=== PATIENT | female | born 1990 | race Caucasian/White ===

== ENCOUNTER 2017-01-03 16:41 | Inpatient (IN) | payer MEDICAID ==
[~2017-01-03] VITALS: Ht 157.5 cm; Wt 94.2 kg
[2017-01-03 17:13] VITALS: Ht 157.5 cm; Wt 94.2 kg
[2017-01-03 17:14] VITALS: BP 153/90; PULSE 75; RESP 18
[2017-01-03] MEDS ORDERED: PRENAT PO (17:15)
[2017-01-03 17:45] LABS: ADD SCAN DIFF NO
[2017-01-03 17:48] LABS: BASOPHIL # 0.1 10^3/ul (0.0-0.1); BASOPHILS % 0.7 % (0.0-2.0); EOSINOPHILS # 0.6 10^3/ul (0.0-0.5); EOSINOPHILS % 7.4 % (0.0-7.0); HEMATOCRIT 38.9 % (37.0-47.0); HEMOGLOBIN 12.8 g/dl (12.0-16.0); LYMPHOCYTES # 1.8 10^3/ul (0.8-2.9); LYMPHOCYTES % 20.8 % (15.0-51.0); MEAN CORPUSCULAR HEMOGLOBIN 28.6 pg (29.0-33.0); MEAN CORPUSCULAR HGB CONC 32.9 g/dl (32.0-37.0); MEAN CORPUSCULAR VOLUME 86.8 fl (82.0-101.0); MEAN PLATELET VOLUME 11.9 fl (7.4-10.4); MONOCYTE # 0.8 10^3/ul (0.3-0.9); MONOCYTES % 8.9 % (0.0-11.0); NEUTROPHIL # 5.4 10^3/ul (1.6-7.5); PLATELET COUNT 143 10^3/UL (140-415); RED BLOOD COUNT 4.48 10^6/ul (4.20-5.40); RED CELL DISTRIBUTION WIDTH 15.2 % (11.5-14.5); WHITE BLOOD COUNT 8.7 10^3/ul (4.8-10.8)
[2017-01-03 17:58] LABS: ADD UMIC YES; URINE BILIRUBIN (Dip) NEGATIVE (NEGATIVE); URINE BLOOD (Dip) TRACE (NEGATIVE); URINE COLOR LT. YELLOW (YELLOW); URINE GLUCOSE (Dip) NEGATIVE (NEGATIVE); URINE KETONES (Dip) NEGATIVE (NEGATIVE); URINE LEUKOCYTE ESTERASE (Dip) NEGATIVE (NEGATIVE); URINE NITRITE (Dip) NEGATIVE (NEGATIVE); URINE TOTAL PROTEIN (Dip) 4+ (NEGATIVE); URINE UROBILINOGEN (Dip) 0.2 E.U./dL (0.1-1.0)
--- NOTE | 2017-01-03 18:06 | RADRPT ---
PROCEDURE: US OB. CLINICAL INDICATION: Hypertension TECHNIQUE: Multiple sonographic images of the pelvis were obtained. The images were reviewed on a PACS workstation. COMPARISON: No prior studies are available for comparison. FINDINGS: There is a single live intrauterine . cardiac activity is identified at a rate of 14 4 beats per minute. presentation is cephalic. Placenta is anterior grade 1. there are multiple venous lakes withi n the placenta. Biophysical profile score is as follows: Breathing 2 Movements 2 Tone 2 Fluid volume 2 Amniotic fluid index = 7.2 cm Total biophysical profile score = 8/8 IMPRESSION: Biophysical profile score = 8/8 RPTAT: HH .Melvin Gross MD, Date Time Electronically viewed and signed by .Melvin Gross MD, on 01/03/2017 18:06 .W/
--- NOTE | 2017-01-03 18:06 | RADRPT ---
PROCEDURE: US OB CLINICAL INDICATION: Increased blood pressure TECHNIQUE: Multiple sonographic images of the pelvis were obtained. The images were reviewed on a PACS workstation. COMPARISON: None FINDINGS: The cervix is not well visualized. There is a single viable intrauterine gestation. Cardiac activity is present with 139 beats per minute. There is a vertex presentation. The placenta is anterior. Multiple placental lakes are noted measuring approximately 1.5 cm each. Th ere is no evidence for an abruption or placenta previa. There is a subjectively normal amount of amniotic fluid. Measurements were made in order to determine age. The results are as follows (cm): BPD =8.10 HC =29.53 AC =29.16 FL =6.19 Estimated gestational age by ultrasound of approximately 32 weeks, 4 days. The estimated date of delivery by ultrasound is 02/24/2017. Reported gestational age by LMP of approximately 32 weeks, 4 days. The reported date of delivery by LMP is 02/24/2017. EFW = 2038 grams (44th percentile) IMPRESSION: Single viable intrauterine gestation of approximately 32 weeks, 4 days . The estimated date of delivery is 02/24/2017 . Dating by ultrasound is consistent with dating by LMP. Estimated weight is in the 44th percentile. RPTAT: EE Physician Arron Date Time Electronically viewed and signed by Physician Arron on 01/03/2017 18:06 /
[2017-01-03 18:07] LABS: BACTERIA,URINE FEW; URINE RBCS 0-2 /HPF (0)
[2017-01-03 18:11] LABS: ALBUMIN 3.1 g/dl (3.3-4.9); POTASSIUM 3.9 mmol/L (3.5-5.1)
[2017-01-03 18:13] LABS: CREATININE 0.61 mg/dl (0.44-1.00)
[2017-01-03 18:14] LABS: ALBUMIN/GLOBULIN RATIO 0.93; BILIRUBIN,INDIRECT 0.1 mg/dl (0-1.1); BILIRUBIN,TOTAL 0.1 mg/dl (0.2-1.3); CALCIUM 8.5 mg/dl (8.4-10.2); TOTAL PROTEIN 6.4 g/dl (6.1-8.1)
[2017-01-03 18:22] LABS: INR 0.91; PARTIAL THROMBOPLASTIN TIME 27.7 Sec (25.0-35.0); PROTIME 12.2 Sec (12.2-14.2)
[2017-01-03] MEDS: LACTATED RINGER'S 1,000 ML IV SCH (20:40)
[2017-01-03] MEDS ORDERED: LABETALOL 200 MG TAB PO SCH (21:00)
[2017-01-03] MEDS: LABETALOL 100 MG TAB PO SCH (21:35)
[2017-01-03] MEDS: BETAMET NA PHOS/AC(6 MG/ML) 5ML INJ IM SCH (21:38)
[2017-01-04] MEDS: LACTATED RINGER'S 1,000 ML IV SCH ×3 (03:56→20:42)
[2017-01-04] MEDS ORDERED: LABETALOL 100 MG TAB PO SCH (09:00)
[2017-01-04] MEDS: LABETALOL 100 MG TAB PO SCH ×2 (09:09→21:20)
--- NOTE | 2017-01-04 15:57 | CONS ---
DATE OF ADMISSION: 01/03/2017 DATE OF CONSULTATION: 01/04/2017 HISTORY OF PRESENT ILLNESS: The patient is a 26-year-old G1 at 32 weeks and 6 days, who presented l ast night with elevated blood pressures. She was placed on labetalol 200 mg twice a day and subsequ ently her blood pressures have decreased and they are normal to moderate range. At the time of admi ssion, her blood pressures were 3 times in the severe range. Apparently, she denied any headache or chest pain or shortness of breath or nausea or vomiting. Her AST, ALT normal. Her platelet count is 144,000. However, there is no baseline platelet count t o compare. Her creatinine 0.6. A 24-hour urine for protein has not been ordered. The patient received betamethasone last night and she is to receive her second dose of betamethasone today. She is obese and her heart tone is reassuring overall but interrupted at times. She has no contractions. PAST MEDICAL HISTORY: None. SURGICAL HISTORY: None. OBSTETRICAL HISTORY: G1. VITAL SIGNS: Currently blood pressure is normal. PHYSICAL EXAMINATION: Deferred. Vital signs as above. LABORATORY VALUES: As above. HEART TONES: As above. IMPRESSION: Intrauterine at 32 weeks and 6 days with severe gestational hypertension, imp roved with medication. Laboratories are normal. The patient is currently overall stable. She is status post betamethasone x1, is to receive her second dose of betamethasone tonight. RECOMMENDATIONS: 1. Please order a 24-hour urine for protein and creatinine clearance. 2. Please ask for the baseline platelet count as her platelet count currently is not too low, but i s low for the gestational age. 3. Repeat platelet count just to make sure that the platelet count is not decreasing. 4. NICU consult. 5. Delivery is recommended if the patient has non-reassuring heart tone, if the platelet coun t is less than 100,000, or if the patient has neurologic or GI symptoms or oliguric or the blood pre ssures are again in the severe range despite medication. Otherwise, delivery at 34 weeks is recommended. These recommendations were verbally discussed with the nurse and Dr. Gonzalez. Dictated By: WILMA DAVENPORT/LAZARO Conf#: [id number] DID#: [id number]
[2017-01-04] MEDS: BETAMET NA PHOS/AC(6 MG/ML) 5ML INJ IM SCH (21:19)
--- NOTE | 2017-01-04 21:59 | HP ---
Date/Time of Note Date/Time of Note late entry DATE: 01/03/17 OB - History Hx of Present Free Text/Dictation sent in from clinic for elevated BP and 4 + proteinuria and excessive weight gain in one week Chief Complaint: No C/O headache, blurred vision and epigastric pain Last Menstrual Period: Mar 17, 2017 Estimated Due Date: February 24, 2017 : 1 Para: 0 Care: Limited Care Ultrasounds: Normal mid trimester US Obstetrical Complications: Pre-eclampsia Medical Complications: None Past Family/Social History * Past Medical, Surgical, Family and Obstetric Histories reviewed from chart. Blood Type: O+ Rubella: immune RPR/VDRL: Negative GBS Status: Unknown HBsAG: Negative OB Admission Exam Vital Signs Vital Signs Vital Signs Date Time Temp Pulse Resp B/P Pulse Ox O2 Delivery O2 Flow Rate FiO2 01/03/17 17:14 98.2 75 18 153/90 Physical Exam HEENT: Abnormal (face is edematous ) Heart: Rhythm Normal Lungs: Clear Abdomen: WNL Extremities: Edema Reflexes: Normal Cervical Dilatation: None Effacement: 0% Station: -3 Membranes: Intact Heart Rate: 150's Accelerations: Accelerations Present Decelerations: No Decelerations Varibility: Marked Contractions on Admission: None Last 72 hours Lab Results CBC & BMP 01/03/17 17:35 Liver Function Test 01/03/17 17:35 Alanine Aminotransferase (ALT/SGPT) 40 Albumin 3.1 L Alkaline Phosphatase 143 H Aspartate Amino Transf (AST/SGOT) 33 Direct Bilirubin 0.00 Total Protein 6.4 OB Assessment/Plan Other Assessment: 32.6 weeks gestation PIH R/O severe PIH Other plan: start on Labetalol and 24 hr urine collection for protein and Cr/Cl Perinatology consult MARY TRUJILLO MD Jan 04, 2017 21:59
--- NOTE | 2017-01-04 22:02 | PN ---
Date/Time of Note Date/Time of Note DATE: 01/04/17 TIME: 22:00 OB Subjective Subjective Subjective No C/O H/A B/V or E/P OB Objective Objective Objective BPS are stable general P/E is unchanged OB Assessment/Plan Other Assessment: PIH at 33 weeks R/O severe PIH Other plan: will follow perinatology recommendation MARY TRUJILLO MD Jan 04, 2017 22:02
--- NOTE | 2017-01-04 23:27 | RADRPT ---
PROCEDURE: OB ultrasound for biophysical profile CLINICAL INDICATION: Biophysical profile. . TECHNIQUE: Multiple sonographic images of the pelvis were obtained. Transabdominal view of the gr avid uterus are available for review. The images were reviewed on a PACS workstation. COMPARISON: 01/03/2017 FINDINGS: Single intrauterine gestation. Presentation: Cephalic. Partially visualized placenta: Anterior. breathing movement = 2/2 tone = 2/2 motion = 2/2 LAVELL = 0/2 LAVELL = 4.1 cm heart rate: 161 beats per minute IMPRESSION: Single intrauterine gestation. Biophysical profile 6/8 Mild oligohydramnios with an LAVELL of 4.1 cm, 7.2 cm on the previous examination. Follow-up examinatio ns are recommended. RPTAT: AADD .Shine Arellano MD, MD Date Time Electronically viewed and signed by .Shine Arellano MD, on 01/04/2017 23:27 .B/
[2017-01-05] MEDS: LACTATED RINGER'S 1,000 ML IV SCH ×4 (04:34→22:39)
[2017-01-05 06:49] LABS: ADD SCAN DIFF NO
[2017-01-05 06:53] LABS: BASOPHILS % 0.4 % (0.0-2.0); HEMATOCRIT 35.4 % (37.0-47.0); HEMOGLOBIN 11.4 g/dl (12.0-16.0); LYMPHOCYTES # 1.3 10^3/ul (0.8-2.9); LYMPHOCYTES % 16.7 % (15.0-51.0); MEAN CORPUSCULAR HEMOGLOBIN 28.1 pg (29.0-33.0); MEAN CORPUSCULAR HGB CONC 32.2 g/dl (32.0-37.0); MEAN CORPUSCULAR VOLUME 87.2 fl (82.0-101.0); MONOCYTE # 0.3 10^3/ul (0.3-0.9); MONOCYTES % 3.9 % (0.0-11.0); NEUTROPHIL # 5.9 10^3/ul (1.6-7.5); NEUTROPHILS % 76.7 % (39.0-77.0); PLATELET COUNT 154 10^3/UL (140-415); RED BLOOD COUNT 4.06 10^6/ul (4.20-5.40); RED CELL DISTRIBUTION WIDTH 15.6 % (11.5-14.5); WHITE BLOOD COUNT 7.7 10^3/ul (4.8-10.8)
[2017-01-05 07:00] LABS: INR 1.11; PROTIME 14.3 Sec (12.2-14.2); PT RATIO 1.1
[2017-01-05 07:01] LABS: PARTIAL THROMBOPLASTIN TIME 26.5 Sec (25.0-35.0)
[2017-01-05 07:11] LABS: ALBUMIN 2.6 g/dl (3.3-4.9); POTASSIUM 4.8 mmol/L (3.5-5.1)
[2017-01-05 07:13] LABS: CREATININE 0.55 mg/dl (0.44-1.00)
[2017-01-05 07:14] LABS: ALBUMIN/GLOBULIN RATIO 0.81; CALCIUM 8.7 mg/dl (8.4-10.2); TOTAL PROTEIN 5.8 g/dl (6.1-8.1)
[2017-01-05] MEDS: LABETALOL 100 MG TAB PO SCH ×2 (08:59→21:09)
--- NOTE | 2017-01-05 09:03 | RADRPT ---
PROCEDURE: OB ultrasound CLINICAL INDICATION: . OB ultrasound with fluid volume assessment. Oligohydramnios TECHNIQUE: Sonographic evaluation to assess the amniotic fluid volume was performed. Transabdomin al imaging of the gravid uterus was performed. COMPARISON: 01/04/2017 FINDINGS: The amniotic fluid index equals approximately 4.7 cm. heart rate: 150 Beats per minute. Presentation: Cephalic Placenta anterior IMPRESSION: Amniotic fluid index equals 4.7 cm, previously 4.1 cm on 01/04/2017. RPTAT: AADD .Shine Arellano MD, MD Date Time Electronically viewed and signed by .Shine Arellano MD, MD on 01/05/2017 09:02 .B/
[2017-01-05 12:06] LABS: SCRET 0.55 mg/dl (0.44-1.00)
[2017-01-05] MEDS ORDERED: OXYTOCIN 30 UNITS/LR 500 ML IV SCH (15:30)
[2017-01-05] MEDS ORDERED: CEFAZOLIN 2 GM/50 ML (PMX) 50 ML IV SCH (15:30)
[2017-01-05] MEDS ORDERED: MISOPROSTOL 200 MCG TAB PR PRN ×2 (15:30→23:00)
[2017-01-05] MEDS ORDERED: OXYTOCIN 30 UNITS/LR 500 ML IV PRN ×2 (15:30→23:00)
[2017-01-05] MEDS ORDERED: CARBOPROST 250 MCG INJ IM PRN ×2 (15:30→23:00)
[2017-01-05] MEDS ORDERED: METHYLERGONOVINE 0.2 MG INJ IM PRN ×2 (15:30→23:00)
[2017-01-05] MEDS ORDERED: CITRIC ACID/NA CITRATE 30 ML CUP ONE (17:11)
[2017-01-05] MEDS ORDERED: ONDANSETRON 4 MG INJ ONE (17:11)
[2017-01-05] MEDS ORDERED: morphine SULFATE/PF (10 MG/10 ML) INJ ONE (17:38)
[2017-01-05] MEDS ORDERED: OXYTOCIN 10 UNIT INJ ONE ×2 (17:38→18:08)
[2017-01-05] MEDS ORDERED: FENTAnyl 50 MCG/ML VIAL ONE (17:38)
[2017-01-05] MEDS ORDERED: PHENYLephrine (100 MCG/ML) 5ML SYG ONE (17:38)
[2017-01-05] MEDS ORDERED: GLYCOPYRROLATE 0.4 MG INJ ONE (17:38)
[2017-01-05] MEDS ORDERED: METOCLOPRAMIDE 10 MG INJ ONE (17:39)
[2017-01-05] MEDS ORDERED: TRIMETHOBENZAMIDE 100 MG/ML VIAL IM PRN (18:30)
[2017-01-05] MEDS ORDERED: DIPHENHYDRAMINE 50 MG INJ IV PRN ×2 (18:30)
[2017-01-05] MEDS ORDERED: morphine 2 MG INJ IV PRN ×2 (18:30)
[2017-01-05] MEDS ORDERED: ONDANSETRON 4 MG INJ IV PRN ×2 (18:30)
[2017-01-05] MEDS ORDERED: EPHEDrine SULFATE 50 MG/5 ML SYG IV PRN (18:30)
[2017-01-05] MEDS ORDERED: MEPERIDINE 25 MG INJ IV PRN (18:30)
[2017-01-05] MEDS ORDERED: LABETALOL HCL 20MG INJ IV PRN (18:30)
[2017-01-05] MEDS ORDERED: ZOLPIDEM 5 MG TAB PO PRN (18:30)
[2017-01-05] MEDS ORDERED: hydrALAzine 20 MG INJ IV PRN (18:30)
[2017-01-05] MEDS ORDERED: HYDROmorphONE (0.2 MG/ML) 10ML SYG IV PRN ×3 (18:30)
[2017-01-05] MEDS ORDERED: FENTAnyl 50 MCG/ML VIAL IV PRN ×3 (18:30)
[2017-01-05] MEDS ORDERED: NALOXONE (0.4 MG/ML) INJ IV PRN (18:30)
[2017-01-05] MEDS ORDERED: KETOROLAC 30 MG INJ IV PRN (18:30)
[2017-01-05] MEDS ORDERED: hydrALAzine 20 MG INJ ONE (18:36)
[2017-01-05] MEDS ORDERED: ONDANSETRON 4 MG INJ IV STA (18:37)
[2017-01-05] MEDS ORDERED: CITRIC ACID/NA CITRATE 30 ML CUP PO ONE (19:00)
[2017-01-05] MEDS ORDERED: VANCOMYCIN 1 GM (PMX) 250 ML IVPB SCH ×2 (19:00→23:00)
--- NOTE | 2017-01-05 19:05 | QN ---
Documentation Comment per perinatologist decision was made to proceed with delivery considering persistent category 2 FHTs and oligohydramnios added to severe PIH decision was mde to proceed with C/S as mode of delivery Patient had good awareness of nature and complications of C/S procedure including but but limited to infection and hemorrhage and agreed to undergo C/S . MARY TRUJILLO MD Jan 05, 2017 19:05
--- NOTE | 2017-01-05 19:08 | OPR ---
Operative Report Planned Procedure Procedure date Jan 05, 2017 Procedure(s) primary C/S Performed by: MARY TRUJILLO MD Assisting provider: ANA LUISA BLOOD MD Anesthesiologist: Aung Agustin M.D. Pre-procedure diagnosis 33 weeks gestation severe PIH persistent category 2 FHTs oligohydramnios Anesthesia Type: spinal Procedure Description Under satisfactory anaesthesia a Pfannenstiel incision was made two fingerbreadth above and parallel to the symphysis of pubis. Incision was extended laterally to the border of the Recti muscles on either sides. Incision was carried down with sharp and blunt dissection until fascia was reached. Anterior Recti muscle fascia was incised in mid portion and incision extended laterally to the border of skin incision. Fascia was mobilized from muscle superiorly and Recti muscles were from midline using sharp and blunt dissection. Peritoneum was visualized; Avoiding bowel and bladder it was incised . Incision was extended superiorly and inferiorly. Bladder blade was placed. Posterior peritoneum covering the lower segment of the uterus and lower segment of the uterus were incised. Incision was extended laterally to the border of Round Lig. on either sides and baby was delivered from OP. position . Amniotic fluid appeared clear. Cord blood was obtained and cord had 3 vessels . Placenta was delivered spontaneously and appeared intact and complete. Intrauterine cavity was rubbed with a laparotomy sponge. Uterine incision was closed in 2 layers using running stitches of No1 Monocryl. Hemostasis appeared secure. Ovaries and Fallopian tubes were within normal limits. Announcing needle, lap sponge and instrument count to be correct abdomen was closed in layers as follows: Peritoneum and Recti muscles with running stitches of 20 Vicryl. Fascia with running stitch of No 1 PDS. Subcutaneous tissue with running stitches of 20 Chromic and skin was closed using js. Patient tolerated the procedure well and was transferred to [facility] in good condition. Post-Procedure Post-procedure diagnosis S/P C/S Findings: Live Baby oligohydramnios true cord knot Specimen removed: No Complications: None Pt Condition post procedure: stable Disposition: PACU Physician Certification I, the undersigned physician, hereby certify that I have discussed the procedure described in this consent form with this patient (or the patient's legal cash application representative), including: * The risk and benefits of the procedure; * Any adverse reactions that may reasonably be expected to occur; * Any alternative efficacious methods of treatment which may be medically viable ; * The potential problems that may occur during recuperation; * Potential for blood transfusion and associated risks/benefits; and * Any research or economic interest I may have regarding this treatment. I further certify that the patient/legally responsible person was encouraged to ask question and that all questions were answered. MARY TRUJILLO MD Jan 05, 2017 19:08
[2017-01-05 22:15] VITALS: BP 140/84; PULSE 87; RESP 20
[2017-01-05 22:45] VITALS: BP 141/83; PULSE 88; RESP 19
[2017-01-05] MEDS ORDERED: ACETAMINOPHEN/CODEINE #3 TAB PO PRN (23:00)
[2017-01-05] MEDS ORDERED: NA PHOSPHATE/BIPHOS 133 ML ENEMA PR PRN (23:00)
[2017-01-05] MEDS ORDERED: MAGNESIUM SULFATE 4 GM/100 ML 100 ML IV SCH (23:00)
[2017-01-05] MEDS ORDERED: LANOLIN 7 GM TUBE TOP PRN (23:00)
[2017-01-05] MEDS: MAGNESIUM SULFATE 20 GM/500 ML 500 ML IV SCH (23:41)
[2017-01-05 23:45] VITALS: BP 149/86; PULSE 87; RESP 19
[2017-01-06] VITALS (18 sets, daily range): BP systolic 121–152; BP diastolic 68–93; PULSE 75–90; RESP 16–20
[2017-01-06] MEDS: CLINDAMYCIN 300 MG CAP PO SCH ×4 (00:41→17:41)
[2017-01-06] MEDS: CEFAZOLIN 2 GM/50 ML (PMX) 50 ML IV SCH ×3 (00:41→14:06)
[2017-01-06] MEDS: LACTATED RINGER'S 1,000 ML IV SCH ×3 (06:07→22:39)
[2017-01-06] MEDS: SENNA/DOCUSATE NA (8.6MG/50MG) TAB PO SCH ×2 (08:34→21:17)
[2017-01-06] MEDS: LABETALOL 100 MG TAB PO SCH ×2 (08:36→21:16)
[2017-01-06 08:46] LABS: ADD SCAN DIFF NO
[2017-01-06 08:56] LABS: BASOPHILS % 0.1 % (0.0-2.0); EOSINOPHILS % 0.1 % (0.0-7.0); HEMATOCRIT 33.1 % (37.0-47.0); HEMOGLOBIN 10.9 g/dl (12.0-16.0); LYMPHOCYTES # 1.9 10^3/ul (0.8-2.9); LYMPHOCYTES % 13.5 % (15.0-51.0); MEAN CORPUSCULAR HGB CONC 32.9 g/dl (32.0-37.0); MEAN PLATELET VOLUME 12.6 fl (7.4-10.4); MONOCYTE # 1.3 10^3/ul (0.3-0.9); MONOCYTES % 9.1 % (0.0-11.0); NEUTROPHILS % 76.8 % (39.0-77.0); NUCLEATED RED BLOOD CELLS% 0.1 /100WBC (0.0-0.0); PLATELET COUNT 171 10^3/UL (140-415); RED BLOOD COUNT 3.76 10^6/ul (4.20-5.40); RED CELL DISTRIBUTION WIDTH 15.8 % (11.5-14.5); WHITE BLOOD COUNT 14.3 10^3/ul (4.8-10.8)
[2017-01-06] MEDS ORDERED: BISACODYL 10 MG SUPP PR ONE (10:00)
[2017-01-06] MEDS: MAGNESIUM SULFATE 20 GM/500 ML 500 ML IV SCH (14:09)
--- NOTE | 2017-01-06 18:32 | PN ---
Date/Time of Note Date/Time of Note DATE: 01/06/17 TIME: 18:31 Assessment/Plan VTE Prophylaxis VTE Prophylaxis Intervention: ambulation Lines/Catheters IV Catheter Type (from Nrsg): Saline Lock Assessment/Plan Assessment/Plan S/P C/S POD # 1 Severe PIH willadvance diet and ambulate Subjective 24 Hr Interval Summary No BM passing flatus Constitutional: BM, ambulates, flatus, improved, no complaints, urine output Pain Control: well controlled Exam/Review of Systems Vital Signs Vitals Vital Signs Date Time Temp Pulse Resp B/P Pulse Ox O2 Delivery O2 Flow Rate FiO2 01/06/17 17:57 75 140/75 Room Air 01/06/17 17:00 18 01/06/17 16:00 98.5 99 01/06/17 05:55 21 Intake and Output 01/05/17 01/05/17 01/06/17 15:00 23:00 07:00 Intake Total 1200 ml 2775 ml 1175 ml Output Total 1000 ml 875 ml 1200 ml Balance 200 ml 1900 ml -25 ml Exam Free Text/Dictation Abdomen: soft BS + incision: covered Constitutional: alert, oriented, well developed Psych: nl mood/affect, no complaints Head: atraumatic, normocephalic Eyes: EOMI, nl conjunctiva, nl lids, nl sclera ENMT: mucosa pink and moist, nl external ears & nose, nl lips & teeth, nl nasal mucosa & septum Neck: non-tender, supple Respiratory: clear to auscultation, normal air movement Cardiovascular: nl pulses, regular rate and rhythm Gastrointestinal: nl liver, spleen, non-tender, soft Musculoskeletal: nl extremities to inspection, nl gait and stance Extremities: normal pulses Neurological: BODY SANDER II-XII intact, nl mental status, nl speech, nl strength Skin: nl turgor, rash or lesions Lymph: nl lymph nodes Results Result Diagram: 01/06/17 0814 01/05/17 0610 MARY TRUJILLO MD Jan 06, 2017 18:32
[2017-01-06] MEDS: OXYCODONE/ACETAMINOPHEN (5/325) TAB PO PRN (18:58)
[2017-01-06] MEDS: IBUPROFEN 800 MG TAB PO SCH (21:17)
[2017-01-07] MEDS: OXYCODONE/ACETAMINOPHEN (5/325) TAB PO PRN ×2 (00:05→08:29)
[2017-01-07] MEDS: CLINDAMYCIN 300 MG CAP PO SCH ×3 (00:09→12:43)
[2017-01-07 04:00] VITALS: BP 125/82; PULSE 85; RESP 18
[2017-01-07] MEDS: LACTATED RINGER'S 1,000 ML IV SCH ×3 (05:48→22:39)
[2017-01-07] MEDS: IBUPROFEN 800 MG TAB PO SCH ×3 (05:48→21:47)
[2017-01-07 08:00] VITALS: BP 128/75; PULSE 80; RESP 19
[2017-01-07 08:08] LABS: ADD SCAN DIFF NO
[2017-01-07 08:11] LABS: BASOPHILS % 0.2 % (0.0-2.0); EOSINOPHILS # 0.1 10^3/ul (0.0-0.5); EOSINOPHILS % 0.8 % (0.0-7.0); HEMATOCRIT 34.2 % (37.0-47.0); HEMOGLOBIN 10.7 g/dl (12.0-16.0); LYMPHOCYTES # 2.2 10^3/ul (0.8-2.9); LYMPHOCYTES % 13.2 % (15.0-51.0); MEAN CORPUSCULAR HEMOGLOBIN 27.9 pg (29.0-33.0); MEAN CORPUSCULAR HGB CONC 31.3 g/dl (32.0-37.0); MEAN CORPUSCULAR VOLUME 89.3 fl (82.0-101.0); MEAN PLATELET VOLUME 12.4 fl (7.4-10.4); MONOCYTE # 1.2 10^3/ul (0.3-0.9); MONOCYTES % 7.2 % (0.0-11.0); NEUTROPHIL # 13.2 10^3/ul (1.6-7.5); NUCLEATED RED BLOOD CELLS% 0.2 /100WBC (0.0-0.0); PLATELET COUNT 186 10^3/UL (140-415); RED BLOOD COUNT 3.83 10^6/ul (4.20-5.40); RED CELL DISTRIBUTION WIDTH 16.2 % (11.5-14.5)
[2017-01-07] MEDS ORDERED: INFLUENZA VIRUS VACCINE 0.5 ML (DISPENSING) IM* ONE (09:00)
[2017-01-07] MEDS: LABETALOL 100 MG TAB PO SCH ×2 (10:20→21:46)
[2017-01-07] MEDS: SENNA/DOCUSATE NA (8.6MG/50MG) TAB PO SCH ×2 (10:21→21:46)
[2017-01-07] MEDS ORDERED: metroNIDAZOLE 500 MG TAB PO SCH (15:30)
[2017-01-07 16:00] VITALS: BP 122/84; PULSE 75; RESP 20
--- NOTE | 2017-01-07 16:18 | DS ---
Date/Time of Note Date/Time of Note home next day DATE: 01/07/17 TIME: 16:16 Obstetrical Discharge Record Final Diagnosis Final Diagnosis: delivered Other Final Diagnosis S/P C/S severe PIH Section Section: Primary Primary Indication severe PIH Complications Preg induced Hypertension Condition on Discharge Physical Assessment Last Vitals: see nurses notes Voiding: Yes Bowel Movement: Yes Breast: Soft, non-tender, Filling Fundus: Firm Abdomen and Incision: soft bs + incision : healing well Episiotomy: NA Calf Tenderness: No Patient Condition: Good MARY TRUJILLO MD Jan 07, 2017 4:18 pm
--- NOTE | 2017-01-07 16:20 | DS ---
Date/Time of Note Date/Time of Note home next day DATE: 01/07/17 TIME: 16:18 Discharge Summary Admission/Discharge Info Admit Date/Time Jan 03, 2017 at 6:50 pm Discharge Date/Time 01/08/2017 Final Diagnosis S/P C/S severe PH Patient Condition: Good Procedures primary C/S Hx of Present Illness 26 y/o female had primary C/S for severe PIH Hospital Course uncomplicated Home Meds Reported Medications Multivit/Min/Fol Ac/Iron/Pren* ( S*) 1 Tab Tab, 1 TAB PO DAILY, TAB 01/03/17 Follow-up Plan 2-3 days in clinic for staple removal Pending Labs Laboratory Tests Test 01/07/17 08:04 White Blood Count 17.010^3/ul (4.8-10.8) Red Blood Count 3.8310^6/ul (4.20-5.40) Hemoglobin 10.7g/dl (12.0-16.0) Hematocrit 34.2% (37.0-47.0) Mean Corpuscular Volume 89.3fl (82.0-101.0) Mean Corpuscular Hemoglobin 27.9pg (29.0-33.0) Mean Corpuscular Hemoglobin Concent 31.3g/dl (32.0-37.0) Red Cell Distribution Width 16.2% (11.5-14.5) Platelet Count 97488^3/UL (140-415) Mean Platelet Volume 12.4fl (7.4-10.4) Neutrophils % 78.0% (39.0-77.0) Lymphocytes % 13.2% (15.0-51.0) Monocytes % 7.2% (0.0-11.0) Eosinophils % 0.8% (0.0-7.0) Basophils % 0.2% (0.0-2.0) Nucleated Red Blood Cells % 0.2/100WBC (0.0-0.0) Neutrophils # 13.210^3/ul (1.6-7.5) Lymphocytes # 2.210^3/ul (0.8-2.9) Monocytes # 1.210^3/ul (0.3-0.9) Eosinophils # 0.110^3/ul (0.0-0.5) Basophils # 0.010^3/ul (0.0-0.1) Nucleated Red Blood Cells # 0.010^3/ul (0.0-0.0) MARY TRUJILLO MD Jan 07, 2017 4:20 pm
--- NOTE | 2017-01-07 16:22 | PD.PPDC ---
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 Physician Information 26 y/o female had primary C/S Diagnosis Final Diagnosis: S/P C/S and PIH Condition Patient Condition: Good Diet Diet: Resume Regular Diet Activity/Restrictions Activity: February Shower Restrictions: No Exercising No Lifting Nothing in the Vagina Return to Work or School: Mar 14, 2017 Wound/Drain Care Instructions Wound/Drain Care Instructions: Keep clean and dry Follow-up Follow-up with Physician: 2, 3, Day/Days (in clinic for staple removal ) Return to clinic for RULES EXAMINER Instructions: Fever greater than 101 Chills OB Instructions: Breast Tenderness Depression Blurried Vision Headache Surgical Instructions: Incisional Drainage Incisional Redness MARY TRUJILLO MD Jan 07, 2017 4:22 pm
[2017-01-07] MEDS ORDERED: IBUP800T25 PO (16:25)
[2017-01-07] MEDS ORDERED: CIPR500T4 PO (16:25)
[2017-01-07] MEDS ORDERED: Oxycodone/Acetamin (5/325) PO (16:25)
[2017-01-07] MEDS ORDERED: DOXY100T2 PO (16:25)
[2017-01-07] MEDS ORDERED: LABE100T3 PO (16:25)
[2017-01-07] MEDS ORDERED: PRENAT PO (16:25)
[2017-01-07] MEDS ORDERED: METR500T14 PO (16:25)
[2017-01-07] MEDS: metroNIDAZOLE 500 MG TAB PO SCH ×2 (17:25→23:46)
[2017-01-07] MEDS: CIPROFLOXACIN 500 MG TAB PO SCH (17:25)
[2017-01-07 19:50] VITALS: BP 130/75; PULSE 69; RESP 18
[2017-01-07] MEDS: DOXYCYCLINE 100 MG TAB PO SCH (21:47)
[2017-01-08 02:00] VITALS: BP 136/83; PULSE 71; RESP 18
[2017-01-08 04:00] VITALS: BP 126/72; PULSE 94; RESP 18
[2017-01-08] MEDS: IBUPROFEN 800 MG TAB PO SCH (05:40)
[2017-01-08] MEDS: metroNIDAZOLE 500 MG TAB PO SCH (05:40)
[2017-01-08] MEDS: CIPROFLOXACIN 500 MG TAB PO SCH (05:40)
[2017-01-08] MEDS: LACTATED RINGER'S 1,000 ML IV SCH (06:39)
[2017-01-08 08:06] LABS: ADD SCAN DIFF NO
[2017-01-08 08:09] LABS: BASOPHILS % 0.3 % (0.0-2.0); EOSINOPHILS # 0.6 10^3/ul (0.0-0.5); HEMATOCRIT 33.3 % (37.0-47.0); HEMOGLOBIN 10.8 g/dl (12.0-16.0); LYMPHOCYTES # 2.8 10^3/ul (0.8-2.9); LYMPHOCYTES % 18.9 % (15.0-51.0); MEAN CORPUSCULAR HEMOGLOBIN 28.6 pg (29.0-33.0); MEAN CORPUSCULAR HGB CONC 32.4 g/dl (32.0-37.0); MEAN CORPUSCULAR VOLUME 88.1 fl (82.0-101.0); MEAN PLATELET VOLUME 11.9 fl (7.4-10.4); MONOCYTES % 6.4 % (0.0-11.0); NEUTROPHIL # 10.4 10^3/ul (1.6-7.5); NEUTROPHILS % 69.6 % (39.0-77.0); PLATELET COUNT 233 10^3/UL (140-415); RED BLOOD COUNT 3.78 10^6/ul (4.20-5.40); WHITE BLOOD COUNT 14.9 10^3/ul (4.8-10.8)
[2017-01-08 08:15] VITALS: BP 132/74; PULSE 83; RESP 18
[2017-01-08] MEDS ORDERED: MEASLES,MUMPS,RUBELLA VACCINE INJ SC* ONE (09:00)
[2017-01-08] MEDS ORDERED: DIPHTH/TET/ACEL PERTUSS (ADULT) 0.5 ML VIAL IM* ONE (09:00)
[2017-01-08] MEDS: SENNA/DOCUSATE NA (8.6MG/50MG) TAB PO SCH (11:06)
[2017-01-08] MEDS: DOXYCYCLINE 100 MG TAB PO SCH (11:06)
[2017-01-08] MEDS: LABETALOL 100 MG TAB PO SCH (11:07)
[2017-01-08 11:30] VITALS: BP 121/88; PULSE 70; RESP 19
== END 2017-01-08 17:44 | disposition home or self-care (01) | DRG 765 ==
LOC: OBT 16:41 → L-D 16:41 → OBT 18:50 → OBG 18:50 → L-D 01-05 16:40 → PP1 01-05 22:21
PROVIDERS: ADMIT Obstetrics & Gynecology; ATTEND Obstetrics & Gynecology
PROC: 10D00Z1 Extraction of Products of Conception, Low, Open Approach (ICD-10-PCS; principal; 2017-01-05 18:00)
DX: O13.4 Gestational [pregnancy-induced] hypertension without significant proteinuria, complicating childbirth (principal); O41.03X0 Oligohydramnios, third trimester, not applicable or unspecified; O60.14X0 Preterm labor third trimester with preterm delivery third trimester, not applicable or unspecified; O76 Abnormality in fetal heart rate and rhythm complicating labor and delivery; Z3A.33 33 weeks gestation of pregnancy; Z37.0 Single live birth
CPT/HCPCS: 76815; 76816; 76818; 80053; 81001; 81003; 82575; 83735; 84156; 84560; 85025; 85384; 85610; 85730; 86592; 86850; 86900; 86901; 87340; 88307; 90686; 90715; 94760; 99464; G0463; J0360; J0690; J0702; J1885; J2274; J2370; J2405; J2590; J2765; J3010; J3370; J3475; J7120